=== PATIENT | male | born 1970 | race American Indian/Alaskan Native ===

== ENCOUNTER 2021-02-16 13:00 | Emergency (ER) | payer MEDICAID ==
--- NOTE | 2021-02-16 13:29 | Consultation ---
Assessment and Plan [facility] Consult Note # Demographics Consult Type: General Neurology Patient Location: Emergency Room First Name: Michel Last Name: Abad Date of : 1970 Age: 50 Gender: Male Time of Initial Page ( Time): 02/16/2021, 13:02 Time of Return Call ( Time): 02/16/2021, 13:02 # HPI History: 50M with seizure, prolonged post-ictal condition reported, neurology consultation requested. Patient says he does not remember what happened this morning. He remembers having right leg pain. Reportedly he had a seizure and has a history of seizures. Says he takes keppra, says he ran out of medication. # Scores Time of exam and NIHSS (): 02/16/2021, 13:23 Level of Consciousness 1a: [0] = Alert; keenly responsive LOC Questions 1b: [2] = Answers neither correctly LOC Commands 1c: [0] = Performs both tasks correctly Best Gaze 2: [0] = Normal Visual 3: [0] = No visual loss Facial Palsy 4: [1] = Minor paralysis Motor Arm Left 5a: [0] = No drift Motor Arm Right 5b: [0] = No drift Motor Leg Left 6a: [3] = No effort against gravity Motor Leg Right 6b: [0] = No drift Limb Ataxia 7: [0] = Absent Sensory 8: [0] = Normal Best Language 9: [0] = No aphasia Dysarthria 10: [0] = Normal Extinction and Inattention 11: [0] = No abnormality NIHSS Total: 6 # PMH-FH-SH Past Medical History: seizure stroke left residual deficit. Social History: ambulatory at baseline # Assessment Impression: Altered Mental Status Seizure says he ran out of keppra, likely etiology for breakthrough seizure. # Plan Thrombolytic/Intervention: NOT IV Thrombolytic or IA Intervention Thrombolytic Exclusion (< 3 hour window): time of onset unclear Thrombolytic Exclusion: > 4.5 hours Intraarterial Exclusion: clinically not consistent with stroke Other: seizure precautions I have discussed my recommendations with the referring provider Additional Recommendations: Keppra 2g IV once, then resume usual outpatient keppra dosing. Disposition: observation # Logistics Telemedicine: Interactive 2 way audio and visual telecommunication technology was utilized during this visit
--- NOTE | 2021-02-16 13:37 | Cat Scan Report ---
CT head without contrast INDICATION : CODE STROKE seizure #[id number]. TECHNIQUE: Axial imaging performed from the skull apex through the skull base without the use of con trast. All CT scans at this location are performed using CT dose reduction for ALARA by means of aut omated exposure control. COMPARISON: None FINDINGS: Parenchyma: There is subcortical low attenuation which is fairly well-defined in the right frontopar ietal region and in the right basal ganglia. No acute hemorrhage identified. Ventricles: There is slight ex vacuo dilatation of the right lateral ventricle. Otherwise ventricles are normal in size and appear symmetric. Soft tissues: Soft tissues including the orbits appear normal. Bones: No acute osseous abnormality. Sinuses: Sinuses and mastoid air cells are clear. IMPRESSION: Ischemic change in the right cerebral hemisphere as outlined above, likely subacute to ch ronic. No acute hemorrhage identified. COMMUNICATION: Time of Communication ([employer] SALESPERSON/CDT): 12:33 PM Licensed Practitioner Receiving Report: Dr. Velarde Signer Name: Hitesh Zamora MD Signed: 02/16/2021 1:33 PM Workstation Name: [id number]
[2021-02-16 13:38] LABS: Basophils % (Auto) 0.4 % (0.0-1.8); Eosinophils % (Auto) 0.1 % (0.0-4.3); Hematocrit 43.4 % (35.5-45.6); Hemoglobin 14.6 gm/dl (11.8-15.2); Lymphocytes # (Auto) 0.5 K/mm3 (1.2-5.4); Lymphocytes % (Auto) 6.4 % (13.4-35.0); Mean Corpuscular HGB Conc 34 % (32-34); Mean Corpuscular Volume 95 fl (84-94); Monocytes # (Auto) 0.3 K/mm3 (0.0-0.8); Monocytes % (Auto) 4.2 % (0.0-7.3); Platelet Count 163 K/mm3 (140-440); Red Blood Count 4.57 M/mm3 (3.65-5.03); Red Cell Distribution Width 13.3 % (13.2-15.2)
[2021-02-16 13:51] LABS: INR 0.95 (0.87-1.13)
[2021-02-16 13:52] LABS: Partial Thromboplastin Time 27.3 Sec. (24.2-36.6); Thrombin Time 16.4 Sec. (15.1-19.6)
[2021-02-16 13:56] LABS: BUN/Creatinine Ratio 10; Blood Urea Nitrogen 11 mg/dL (9-20); Calcium 9.4 mg/dL (8.4-10.2); Hemolysis Index 20
--- NOTE | 2021-02-16 14:05 | Emergency Department Report ---
ED Seizure HPI - General Chief Complaint: Neuro Symptoms/Deficit Stated Complaint: SZ Time Seen by Provider: 02/16/21 13:07 Source: patient Mode of arrival: Stretcher Limitations: No Limitations - History of Present Illness Initial Comments: 50-year-old male, history of seizures, CVA with left-sided weakness, presents to ED following seizure at home. Family reported post-ictal period longer than usual. Patient poor historian, unsure of seizure medication. MD Complaint: seizure -: This afternoon Description of Episode: post-event confusion Witnessed:: Yes Seizure History: known seizure disorder Place: home Treatments Prior to Arrival: none - Related Data Previous Rx's Medication Instructions Recorded Last Taken Type Magnesium Oxide [Mag-Ox] 400 mg PO ONCE #6 tablet 02/16/21 Unknown Rx Metoprolol [Lopressor TAB] 25 mg PO BID #60 tablet 02/16/21 Unknown Rx amLODIPine 10 mg PO DAILY #30 tab 02/16/21 Unknown Rx chlordiazePOXIDE [Librium] 25 mg PO Q6H PRN #20 capsule 02/16/21 Unknown Rx levETIRAcetam [Keppra TAB] 500 mg PO BID #60 tablet 02/16/21 Unknown Rx Allergies Allergy/AdvReac Type Severity Reaction Status Date / Time No Known Allergies Allergy Verified 02/16/21 13:45 ED Review of Systems ROS: Stated complaint: SZ Other details as noted in HPI Comment: All other systems reviewed and negative Constitutional: denies: fever Gastrointestinal: denies: abdominal pain Neurological: denies: headache ED Past Medical Hx - Past Medical History Previous Medical History?: Yes Hx Hypertension: Yes Hx CVA: Yes (left side deficit non ambulatory) - Surgical History Past Surgical History?: No - Social History Smoking Status: Never Smoker Substance Use Type: Alcohol - Medications Home Medications: Home Medications Medication Instructions Recorded Confirmed Last Taken Type Magnesium Oxide [Mag-Ox] 400 mg PO ONCE #6 tablet 02/16/21 Unknown Rx Metoprolol [Lopressor TAB] 25 mg PO BID #60 tablet 02/16/21 Unknown Rx amLODIPine 10 mg PO DAILY #30 tab 02/16/21 Unknown Rx chlordiazePOXIDE [Librium] 25 mg PO Q6H PRN #20 capsule 02/16/21 Unknown Rx levETIRAcetam [Keppra TAB] 500 mg PO BID #60 tablet 02/16/21 Unknown Rx ED Physical Exam - General Limitations: No Limitations General appearance: alert, in no apparent distress - Head Head exam: Present: atraumatic, normocephalic - Eye Eye exam: Present: normal appearance, PERRL, EOMI - ENT ENT exam: Present: mucous membranes moist - Neck Neck exam: Present: normal inspection - Respiratory Respiratory exam: Present: normal lung sounds bilaterally. Absent: respiratory distress - Cardiovascular Cardiovascular Exam: Present: normal rhythm, tachycardia - GI/Abdominal GI/Abdominal exam: Present: soft. Absent: distended, tenderness - Neurological Exam Neurological exam: Present: alert, altered, motor sensory deficit (Baseline left-sided weakness secondary to previous CVA). Absent: oriented X3 (Oriented to self only) - Psychiatric Psychiatric exam: Present: normal affect, normal mood - Skin Skin exam: Present: warm, dry, intact, normal color ED Course Vital Signs 02/16/21 02/16/21 02/16/21 13:46 14:47 17:18 Temperature 99.3 F Pulse Rate 109 H 99 H Respiratory 16 16 Rate Blood Pressure 173/115 176/111 Blood Pressure 161/111 [Left] O2 Sat by Pulse 96 98 Oximetry 02/16/21 17:55 Temperature Pulse Rate 103 H Respiratory Rate Blood Pressure 167/114 Blood Pressure [Left] O2 Sat by Pulse Oximetry - Reevaluation(s) Reevaluation #1: 02/16/21 14:10 Patient is currently more alert and interactive compared to initial arrival. Able to report history of stroke with left-sided weakness. Patient states he ran out of his seizure medication, however, he is still unsure of the name of his medicines. Reevaluation #2: 02/16/21 16:11 Pt was initially entered under the incorrect name and no previous visits were available. Patient info has been updated. I was able to see pt's previous visits. He has a previous admission 11/2020 for chronic alcohol abuse, and withdrawal symptoms. I asked pt if he still drinks heavily, and pt reports yes. States he drinks almost daily, but he has not had a drink since Wed, 4 days ago. Pt states he does feel shaky. No significant tremor on exam. States he is unsure if he has had ETOH withdrawal seizures in the past. Reevaluation #3: 02/16/21 17:40 Chart review shows pt has hx of elevated troponins during last admission in November 2020. Stress test at that time was normal. Asbestos Remover determined it was a nonspecific finding during that admission. Pt denies any chest pain, SOB currently. Troponins today are not as high as they were 3 months ago. ED Medical Decision Making - Lab Data Result diagrams: 02/16/21 13:30 02/16/21 13:30 - EKG Data -: EKG Interpreted by Me EKG shows normal: sinus rhythm, axis, intervals, QRS complexes, ST-T waves Rate: normal - EKG Data Interpretation: no acute changes - Radiology Data Radiology results: report reviewed, image reviewed - Medical Decision Making Patient was initially registered under the wrong name, however Inder Melgoza is his correct name and he has had multiple visits in the past, however, under different account numbers. 50-year-old male presents to ED following seizure at home. Son reported that patient had a longer than usual postictal period. CT head negative for any acute findings. Patient seen and evaluated by teleneurology, 2 g Keppra level was recommended and given. Patient did eventually have improvement in his mental status. Patient has baseline left-sided weakness from previous CVA. No new neurological deficits. Only complaint from patient has been mild headache for which he requested Tylenol. Patient has had no further seizure activity here in the ED. Patient does have a history of alcohol abuse and reports that his last drink was 4 days ago. He is unsure if he has ever had alcohol withdrawal seizures in the past. Patient initially did not remember his usual seizure medication, however later, he did state that he is supposed to take Keppra. No significant tremor on exam. Blood pressure has been elevated, however patient does have history of hypertension, patient states he cannot remember if he is taking any BP meds. Patient received labetalol and hydralazine for BP management here in the ED. Patient was mildly tachycardic upon arrival, in the 110s, however this has improved. EKG shows sinus tach with no ST changes. Patient had some elevation in his troponin, which was present during last admission 3 months ago. He underwent cardiology evaluation and had negative stress test at that time. Patient denies any chest pain currently. BP currently 152/103 w/ HR of 107. Patient will be discharged home with prescriptions for Keppra and BP meds. Patient may be in mild alcohol withdrawal, so prescription for Librium will be given. - Differential Diagnosis seizure, CVA, UTI Critical care attestation.: If time is entered above; I have spent that time in minutes in the direct care of this critically ill patient, excluding procedure time. ED Disposition Clinical Impression: Seizure, Uncontrolled hypertension, Hypomagnesemia, Elevated troponin Disposition: TO HOME OR SELFCARE Is pt being admited?: No Condition: Stable Instructions: Managing Your Hypertension, Seizure, Adult, [id number], Hypertension (ED) Prescriptions: amLODIPine 10 mg PO DAILY #30 tab levETIRAcetam [Keppra TAB] 500 mg PO BID #60 tablet chlordiazePOXIDE [Librium] 25 mg PO Q6H PRN #20 capsule PRN Reason: Alcohol Withdrawal Metoprolol [Lopressor TAB] 25 mg PO BID #60 tablet Magnesium Oxide [Mag-Ox] 400 mg PO ONCE #6 tablet Referrals: OLMAN SANCHEZ MD [Primary Care Provider] - 3-5 Days RADHA ZELAYA MD [Referring] - 3-5 Days [facility] [Provider Group] - 3-5 Days HUSEYIN JUNG MD [Staff Physician] - 3-5 Days
[2021-02-16] MEDS ORDERED: levETIRAcetam 2,000 MG in SODIUM CHLORIDE 0.9% 100 ML IV ONE (14:30)
[2021-02-16 15:58] LABS: Bilirubin,Urine NEG (Negative); Blood,Urine NEG (Negative); Color,Urine Yellow (Yellow); Mucus,Urine FEW /HPF; Urobilinogen,Urine < 2.0 mg/dL (<2.0); WBC,Urine < 1.0 /HPF (0.0-6.0)
[2021-02-16 16:03] LABS: Protein,Urine >500 mg/dL (Negative)
[2021-02-16] MEDS ORDERED: ACETAMINOPHEN 325 MG TAB PO ONE (16:10)
--- NOTE | 2021-02-16 16:16 | XRay Report ---
CHEST 1 VIEW INDICATION: seizure. COMPARISON: 11/08/2020 FINDINGS: SUPPORT DEVICES: None. HEART: Within normal limits. LUNGS/PLEURA: No acute air space or interstitial disease. ADDITIONAL FINDINGS: None. IMPRESSION: 1. No acute findings. Signer Name: Hitesh Zamora MD Signed: 02/16/2021 4:11 PM Workstation Name: [id number]
[2021-02-16] MEDS ORDERED: hydrALAZINE 20 MG/1 ML INJ IV ONE (17:37)
[2021-02-16] MEDS ORDERED: MAGNESIUM OXIDE 400 MG TAB PO ONE (17:54)
[2021-02-16] MEDS ORDERED: LORazepam 2 MG/ML VIAL IV ONE (18:44)
[2021-02-17 12:12] VITALS: BP 133/90
--- NOTE | 2021-02-17 17:58 | Electrocardiograph Report ---
Test Date: 2021-02-16 Test Time: 13:32:03 Pat Name: MANUEL PATEL Department: Room: Gender: M Bus Attendant: MITCHELL : 1970 Requested By: SULMA OWENS Order Number: [id number] Reading MD: Ann Marie Trejo Measurements Intervals [place] Rate: 111 P: 64 [place]: 155 QRS: 9 QRSD: 77 T: 51 QT: 332 QTc: 452 Interpretive Statements Sinus tachycardia Left atrial enlargement Anteroseptal infarct, age indeterminate No previous ECG available for comparison Electronically Signed On 02-17-2021 17:58:03 EDT by Ann Marie Trejo
[2021-02-18 01:34] LABS: Chol/HDL Ratio 1.8 %
== END 2021-02-17 12:30 | disposition home or self-care (01) ==
LOC: ED 13:00
DX: G40.909 Epilepsy, unspecified, not intractable, without status epilepticus (principal); I10 Essential (primary) hypertension; R77.8 Other specified abnormalities of plasma proteins; E83.42 Hypomagnesemia; Z79.899 Other long term (current) drug therapy; Z86.73 Personal history of transient ischemic attack (TIA), and cerebral infarction without residual deficits
CPT/HCPCS: 36415; 70450; 71045; 80048; 80061; 81001; 82550; 82553; 83735; 84484; 85025; 85610; 85670; 85730; 93005; 96365; 96375; 99285; J0360; J1953; J2060